=== PATIENT | female | born 2000 | race American Indian/Alaskan Native ===

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

== ENCOUNTER 2019-06-13 20:18 | Observation (INO) | payer MEDICAID ==
[2019-06-13] MEDS ORDERED: ONDANSETRON 4 MG/2 ML INJ IV PRN (21:30)
[2019-06-13] MEDS ORDERED: LACTATED RINGERS 1,000 ML ONE (21:33)
[2019-06-13] MEDS ORDERED: BUTORPHANOL 2 MG/1 ML INJ IV ONE (21:42)
[2019-06-13] MEDS ORDERED: AMPICILLIN/NS 2 GM/100 ML 2 GM/100 ML BAG IV ONE (21:51)
[2019-06-13] MEDS ORDERED: LACTATED RINGERS 1,000 ML IV SCH (22:00)
[2019-06-13] MEDS ORDERED: AMPICILLIN/NS 1 GM/50 ML 1 GM/50 ML BAG IM ONE (22:00)
[2019-06-13] MEDS ORDERED: AMPICILLIN 1 GM in SODIUM CHLORIDE 0.9% 50 ML IM ONE (22:00)
[2019-06-13] MEDS ORDERED: AMPICILLIN 1 GM in SODIUM CHLORIDE 0.9% 50 ML IV SCH (22:00)
[2019-06-13] MEDS ORDERED: AZITHROMYCIN 1 GM ORAL PWDR PACKET PO ONE (22:00)
[2019-06-13 22:55] LABS: Amphetamine Screen,Urine PRESUMPTIVE NEGATIVE; Benzodiazepines Screen,Urine PRESUMPTIVE NEGATIVE; Cannabinoid Screen,Urine PRESUMPTIVE NEGATIVE; Cocaine Screen,Urine PRESUMPTIVE NEGATIVE; Methadone Screen,Urine PRESUMPTIVE NEGATIVE; Opiate Screen,Urine PRESUMPTIVE NEGATIVE
[2019-06-13] MEDS ORDERED: AZITHROMYCIN 250 MG TAB PO ONE (23:00)
[2019-06-13 23:21] LABS: Bacteria,Urine 2+ /HPF (Negative); Bilirubin,Urine NEG (Negative); Blood,Urine NEG (Negative); Color,Urine Yellow (Yellow); Mucus,Urine 1+ /HPF; Urobilinogen,Urine < 2.0 mg/dL (<2.0)
[2019-06-13 23:23] LABS: WBC,Urine > 182.0 /HPF (0.0-6.0)
[2019-06-13 23:36] LABS: Hematocrit 30.2 % (30.3-42.9); Hemoglobin 9.9 gm/dl (10.1-14.3); Mean Corpuscular HGB Conc 33 % (30-34); Mean Corpuscular Volume 82 fl (79-97); Platelet Count 278 K/mm3 (140-440); Red Blood Count 3.71 M/mm3 (3.65-5.03); Red Cell Distribution Width 13.4 % (13.2-15.2)
--- NOTE | 2019-06-13 23:43 | History and Physical Report ---
History of Present Illness Date of examination: 06/13/19 Date of admission: 06/13/2019 Chief complaint: Rt flank pains x 1 day and urinary frequency x 1wk. History of present illness: Primigravida, 18 yrs old at 35 wks with right flank pains and frequency of urine. Denied chills and fever. Saw another provider for a kidney issue 1 week ago- poor historian-. Was given a yet to be filled script for amoxicillin for a URTI today. Past History - Obstetrical History Expected Date of Delivery: 07/13/19 Actual Gestation: 35 Week(s) 5 Day(s) : 1 Medications and Allergies Allergies Allergy/AdvReac Type Severity Reaction Status Date / Time egg Allergy Hives Verified 06/13/19 22:00 Home Medications Medication Instructions Recorded Confirmed Last Taken Type Amoxicillin [Amoxicillin TAB] 875 mg PO BID 10 Days #20 tablet 11/23/18 Unknown Rx Ondansetron [Zofran Odt] 4 mg PO Q6HR PRN #15 tab.rapdis 11/23/18 Unknown Rx Active Meds: Active Medications Lactated Ringer's (Lactated Ringers) 1,000 mls @ 125 mls/hr IV DIRECT BANDAR Ampicillin Sodium (Ampicillin/Ns 1 Gm/50 Ml) 1 gm in 50 mls @ 200 mls/hr IM Q4HR BANDAR Ondansetron HCl (Zofran) 4 mg IV Q8H PRN PRN Reason: Nausea And Vomiting Last Admin: 06/13/19 21:45 Dose: 4 mg Documented by: Review of Systems Constitutional: no fever, no chills, no lethargy Cardiovascular: no chest pain Respiratory: no cough, no shortness of breath, no pain Genitourinary: other (rt flank pains) Neurological: no headaches Allergic/Immunologic: other (egg) - Vital Signs Vital signs: Vital Signs Temp Pulse Resp BP 99.2 F 94 H 18 110/64 06/13/19 20:47 06/13/19 20:47 06/13/19 20:47 06/13/19 20:47 Temp Pulse Resp BP Pulse Ox 99.2 F 94 H 18 110/64 06/13/19 20:47 06/13/19 20:47 06/13/19 22:20 06/13/19 20:47 - Physical Exam Lungs: Positive: Normal air movement Abdomen: Positive: soft, distention. Negative: tenderness - Obstetrical FHR: category 1 Uterine Contraction Pattern: Absent Results Result Diagrams: 06/13/19 23:00 Abnormal lab results 06/13/19 06/13/19 Range/Units 21:30 23:00 WBC 12.6 H (4.5-11.0) K/mm3 Hgb 9.9 L (10.1-14.3) gm/dl Hct 30.2 L (30.3-42.9) % MCH 27 L (28-32) pg Urine WBC (Auto) > 182.0 H (0.0-6.0) /HPF All other labs normal. Assessment and Plan - Patient Problems (1) 35 to 36 weeks gestation of Current Visit: Yes Status: Acute (2) UTI (urinary tract infection) during Current Visit: Yes Status: Acute Plan to address problem: Needs full work up for a UTI and initial rx for it with ampicillin. If remains stable in the am may go home and continue with her amoxicillin given earlier. Urine culture results will guide rx when available as outpatient.
--- NOTE | 2019-06-13 23:50 | Ultrasound Report ---
ULTRASOUND RENAL INDICATION / CLINICAL INFORMATION: r/o kidney stones. Patient is 35 weeks . COMPARISON: None available. FINDINGS: RIGHT KIDNEY: Length = 11.9 cm. - Echogenicity: Normal. - Cortical Thickness: Normal. - Hydronephrosis: Mild right hydronephrosis. - Cyst or mass: No significant abnormality. - Stones: None seen. LEFT KIDNEY: Length = 13.1 cm. - Echogenicity: Normal. - Cortical Thickness: Normal. - Hydronephrosis: None. - Cyst or mass: No significant abnormality. - Stones: None seen. URINARY BLADDER: Not well seen due to compression by the gravid uterus. FREE FLUID: No definite free fluid. ADDITIONAL FINDINGS: None. IMPRESSION: 1. Mild right hydronephrosis possibly related to . No definite urinary stones. Signer Name: Harry Hill MD Signed: 06/13/2019 11:46 PM Workstation Name: [id number]
[2019-06-13 23:51] LABS: Alanine Aminotransferase 10 units/L (7-56); Albumin 3.7 g/dL (3.9-5); BUN/Creatinine Ratio 10; Blood Urea Nitrogen 5 mg/dL (7-17); Calcium 9.1 mg/dL (8.4-10.2); Hemolysis Index 4
--- NOTE | 2019-06-13 23:53 | Ultrasound Report ---
ULTRASOUND OBSTETRIC LIMITED ULTRASOUND BIOPHYSICAL PROFILE INDICATION / CLINICAL INFORMATION: r/o abruption. Clinical gestational age is 35 weeks 5 days. COMPARISON: None available. FINDINGS: BREATHING MOVEMENT = 2 GROSS BODY MOVEMENT = 2 TONE = 2 QUALITATIVE AMNIOTIC FLUID VOLUME = 2 TOTAL BIOPHYSICAL SCORE = 8/8 HEART RATE (beats per minute): 152 AMNIOTIC FLUID INDEX (cm) = not calculated PRESENTATION: Cephalic. ADDITIONAL FINDINGS: Placenta is anterior and free of the os. No sonographic evidence for placental a bruption. IMPRESSION: 1. Biophysical Score = 8/8 2. No sonographic abnormality of the placenta. Signer Name: Harry Hill MD Signed: 06/13/2019 11:49 PM Workstation Name: [id number]
[2019-06-14] MEDS ORDERED: BUTORPHANOL 2 MG/1 ML INJ IV ONE (01:40)
[2019-06-14] MEDS: AMPICILLIN/NS 1 GM/50 ML 1 GM/50 ML BAG IM SCH ×3 (01:53→10:11)
--- NOTE | 2019-06-14 12:08 | Ultrasound Report ---
ULTRASOUND OB LIMITED HISTORY: Leaking fluid, ruptured membranes TECHNIQUE: Transabdominal ultrasound FINDINGS: A single intrauterine is identified in cephalic position. Heart rate measures 143 bpm. ENRIKE measures 12.4 cm. IMPRESSION: ENRIKE measures 12.4 cm. Signer Name: Joseph Molina Jr, MD Signed: 06/14/2019 12:04 PM Workstation Name: [id number]
--- NOTE | 2019-06-14 12:36 | Progress Note ---
Subjective - Subjective Date of service: 06/14/19 Interval history: Patient seen and examined on AM rounds +ve RUQ pain, no LOF, no VB GFm tracing Category 1 Maternal well being reassuring, no acute abdomen +ve nausea, vomiting, suspect possible gastritis vs cholecystitis. Will obtain RUQ US and follow up labs Plan for d/c home today on abx. if diagnostic testing negative [place] MD Objective - Vital Signs Vital Signs: Vital Signs - 12hr 06/14/19 06/14/19 06/14/19 00:37 01:52 02:52 Temperature 98.4 F Pulse Rate 81 Respiratory 16 18 16 Rate Blood Pressure 105/64 Blood Pressure [Left] 06/14/19 06/14/19 06/14/19 04:58 05:00 07:26 Temperature 98.1 F Pulse Rate 83 85 Respiratory 16 Rate Blood Pressure 98/56 106/70 Blood Pressure [Left] 06/14/19 07:30 Temperature 98.3 F Pulse Rate 85 Respiratory 18 Rate Blood Pressure Blood Pressure 106/70 [Left] - Labs Labs: Abnormal Labs 06/13/19 06/13/19 06/13/19 21:30 23:00 23:00 WBC 12.6 H Hgb 9.9 L Hct 30.2 L MCH 27 L Carbon Dioxide 20 L BUN 5 L Creatinine 0.5 L Albumin 3.7 L Urine WBC (Auto) > 182.0 H Laboratory Results - last 24 hr 06/13/19 06/13/19 06/13/19 21:30 21:30 23:00 WBC 12.6 H RBC 3.71 Hgb 9.9 L Hct 30.2 L MCV 82 MCH 27 L MCHC 33 RDW 13.4 Plt Count 278 Sodium Potassium Chloride Carbon Dioxide Anion Gap BUN Creatinine Estimated GFR BUN/Creatinine Ratio Glucose Calcium Total Bilirubin AST ALT Alkaline Phosphatase Total Protein Albumin Albumin/Globulin Ratio Urine Color Yellow Urine Turbidity Turbid Urine pH 6.0 Ur Specific [place] 1.018 Urine Protein 100 mg/dl Urine Glucose (UA) Neg Urine Ketones Neg Urine Blood Neg Urine Nitrite Pos Urine Bilirubin Neg Urine Urobilinogen < 2.0 Ur Leukocyte Esterase Lg Urine WBC (Auto) > 182.0 H Urine RBC (Auto) 40.0 Urine Bacteria (Auto) 2+ Urine WBC Clumps 3+ Urine Mucus 1+ Urine Opiates Screen Presumptive negative Urine Methadone Screen Presumptive negative Ur Barbiturates Screen Presumptive negative Ur Phencyclidine Scrn Presumptive negative Ur Amphetamines Screen Presumptive negative U Benzodiazepines Scrn Presumptive negative Urine Cocaine Screen Presumptive negative U Marijuana (THC) Screen Presumptive negative Drugs of Abuse Note Disclamer 06/13/19 23:00 WBC RBC Hgb Hct MCV MCH MCHC RDW Plt Count Sodium 138 Potassium 3.8 Chloride 100.8 Carbon Dioxide 20 L Anion Gap 21 BUN 5 L Creatinine 0.5 L Estimated GFR > 60 BUN/Creatinine Ratio 10 Glucose 82 Calcium 9.1 Total Bilirubin < 0.20 AST 18 ALT 10 Alkaline Phosphatase 125 Total Protein 7.4 Albumin 3.7 L Albumin/Globulin Ratio 1.0 Urine Color Urine Turbidity Urine pH Ur Specific [place] Urine Protein Urine Glucose (UA) Urine Ketones Urine Blood Urine Nitrite Urine Bilirubin Urine Urobilinogen Ur Leukocyte Esterase Urine WBC (Auto) Urine RBC (Auto) Urine Bacteria (Auto) Urine WBC Clumps Urine Mucus Urine Opiates Screen Urine Methadone Screen Ur Barbiturates Screen Ur Phencyclidine Scrn Ur Amphetamines Screen U Benzodiazepines Scrn Urine Cocaine Screen U Marijuana (THC) Screen Drugs of Abuse Note
[2019-06-14 12:54] VITALS: BP 94/50
[2019-06-14] MEDS ORDERED: AMPICILLIN/NS 1 GM/50 ML 1 GM/50 ML BAG IV SCH (14:00)
--- NOTE | 2019-06-14 16:50 | Ultrasound Report ---
US abdomen limited INDICATION / CLINICAL INFORMATION: pain. COMPARISON: None available. FINDINGS: Mild right-sided hydronephrosis is seen unchanged from yesterday. The gallbladder is normal without e vidence of cholelithiasis. Common bile duct is normal measuring 2 mm. Visualized portions of the live r, pancreas and aorta are normal. IMPRESSION: Mild right-sided hydronephrosis unchanged from yesterday. This is most likely related to the patient' s . Otherwise negative limited abdominal ultrasound Signer Name: Syed Holcomb MD FACR Signed: 06/14/2019 4:45 PM Workstation Name: [id number]
== END 2019-06-14 14:20 | disposition home or self-care (01) ==
LOC: TRG 20:18 → LD 06-14 00:53
PROVIDERS: ADMIT Obstetrics & Gynecology; ATTEND Obstetrics & Gynecology
DX: O23.43 Unspecified infection of urinary tract in pregnancy, third trimester (principal); O26.893 Other specified pregnancy related conditions, third trimester; R11.2 Nausea with vomiting, unspecified; Z3A.35 35 weeks gestation of pregnancy
CPT/HCPCS: 36415; 76705; 76770; 76815; 76819; 80053; 80307; 81001; 85027; 87076; 87086; 87186; 96365; 96375; 96376; G0378; J0290; J0595; J2405; J7120